=== PATIENT | female | born 1995 | race African-American/Black ===

== ENCOUNTER 2020-12-14 07:36 | Emergency (ER) | payer MEDICAID, OTHER ==
[~2020-12-14] VITALS: Ht 165.1 cm; Wt 81.0 kg
[2020-12-14] MEDS ORDERED: IBUP-2029 MT (07:52)
[2020-12-14] MEDS ORDERED: AMOX-424 MT (07:52)
[2020-12-14] MEDS ORDERED: KETOROLAC 60MG/2ML VIAL IM ONE (08:00)
[2020-12-14] MEDS ORDERED: AMOXICILLIN/POTASSIUM CLAVULANATE 875/125MG TAB PO ONE (08:00)
[2020-12-14 08:05] VITALS: BP 132/71
== END 2020-12-14 08:07 | disposition home or self-care (01) ==
LOC: ER 07:36
DX: K04.7 Periapical abscess without sinus (principal)
CPT/HCPCS: 81025; 96372; 99283; J1885

== ENCOUNTER 2021-02-25 22:40 | Emergency (ER) | payer MEDICAID, OTHER ==
[~2021-02-25] VITALS: Ht 165.1 cm; Wt 84.0 kg
[~2021-02-25 22:40] MED LIST: AMOX-424 MT; IBUP-2029 MT
[2021-02-26] MEDS ORDERED: KETOROLAC 30MG/ML VIAL IM SCH (00:45)
[2021-02-26 01:34] VITALS: BP 128/69
== END 2021-02-26 01:36 | disposition home or self-care (01) ==
LOC: ER 22:40
DX: R55 Syncope and collapse (principal); G50.1 Atypical facial pain; K08.89 Other specified disorders of teeth and supporting structures; Z48.814 Encounter for surgical aftercare following surgery on the teeth or oral cavity; W18.2XXA Fall in (into) shower or empty bathtub, initial encounter; Y93.E1 Activity, personal bathing and showering; Y92.012 Bathroom of single-family (private) house as the place of occurrence of the external cause
CPT/HCPCS: 82962; 93005; 96372; 99283; J1885

== ENCOUNTER 2024-10-03 12:36 | Emergency (ER) | payer MEDICAID, OTHER ==
[~2024-10-03] VITALS: Ht 165.1 cm; Wt 96.0 kg
[2024-10-03 13:05] VITALS: O2SAT 97
[2024-10-03 15:05] VITALS: TEMP 36.7; O2SAT 97
[2024-10-03 15:10] VITALS: BP 131/77; PULSE 67; RESP 14
[2024-10-03] MEDS: IBUPROFEN 600MG TABLET PO ONE (15:10)
== END 2024-10-03 15:14 | disposition home or self-care (01) ==
LOC: ER 12:36
DX: M25.571 Pain in right ankle and joints of right foot (principal); Z79.899 Other long term (current) drug therapy; X50.1XXA Overexertion from prolonged static or awkward postures, initial encounter; Y93.89 Activity, other specified; Y92.89 Other specified places as the place of occurrence of the external cause; Y99.8 Other external cause status
CPT/HCPCS: 73610; 99283